=== PATIENT | male | born 1950 | race Two or more races ===

== ENCOUNTER 2019-10-12 12:54 | Outpatient (CLI) | payer OTHER | END 2019-10-12 12:58 | disposition home or self-care (01) | LOC: LAB 12:54 | PROVIDERS: ATTEND Radiology Diagnostic Radiology | DX: N20.0 Calculus of kidney (principal) ==

== ENCOUNTER 2019-10-19 09:12 | Outpatient (CLI) | payer OTHER | END 2019-10-19 09:25 | disposition home or self-care (01) | LOC: NUCLEAR 09:12 | PROVIDERS: ATTEND Psychiatry & Neurology Neurology | DX: I65.23 Occlusion and stenosis of bilateral carotid arteries (principal) ==